=== PATIENT | female | born 1960 | race Asian ===

== ENCOUNTER 2018-11-01 20:01 | Emergency (ER) | payer OTHER ==
[~2018-11-01] VITALS: Ht 149.9 cm; Wt 52.6 kg
[2018-11-01 20:11] VITALS: Ht 149.9 cm; Wt 52.6 kg
[2018-11-01 21:48] VITALS: BP 128/71
== END 2018-11-01 21:48 | disposition home or self-care (01) ==
LOC: ED 20:01
DX: J06.9 Acute upper respiratory infection, unspecified (principal); J45.909 Unspecified asthma, uncomplicated